=== PATIENT | male | born 2005 | race Two or more races ===

== ENCOUNTER 2025-03-10 08:52 | Emergency (ER) | payer SELFPAY ==
[2025-03-10] MEDS ORDERED: Sodium Chloride 0.9% 10 ML Syringe FLUSH PRN (09:03)
[2025-03-10] MEDS ORDERED: Sodium Chloride 0.9% 2.5 ML Syringe FLUSH PRN (09:03)
[2025-03-10] MEDS: Ondansetron 4 MG/2 ML SDV IVPUSH ONE (09:11)
[2025-03-10] MEDS: Diphtheria,Pertussis(Acell),Tetanus Vaccine 0.5 ML Syringe IM ONE (09:11)
[2025-03-10] MEDS: ceFAZolin 2 GM in Water For Injection, Sterile 20 ML IVPUSH ONE (09:12)
[2025-03-10 09:14] LABS: BASOPHILS ABSOLUTE AUTO 0.07 K/uL (0.00-0.20); BASOPHILS PERCENT AUTO 0.6 % (0.0-1.0); EOSINOPHILS ABSOLUTE AUTO 0.30 K/uL (0.00-0.45); EOSINOPHILS PERCENT AUTO 2.5 % (0.0-6.0); IMMATURE GRAN ABSOLUTE AUTO 0.03 K/uL (0.00-0.05); IMMATURE GRAN PERCENT AUTO 0.2 % (0.0-0.4); LYMPHOCYTES ABSOLUTE AUTO 2.87 K/uL (1.00-4.80); LYMPHOCYTES PERCENT AUTO 23.6 % (24.0-44.0); MEAN PLATELET VOLUME 11.0 fL (9.4-12.4); MONOCYTES ABSOLUTE AUTO 0.70 K/uL (0.00-0.80); MONOCYTES PERCENT AUTO 5.7 % (0.0-8.0); NEUTROPHILS ABSOLUTE AUTO 8.21 K/uL (1.80-7.70); NEUTROPHILS PERCENT AUTO 67.4 % (41.0-71.0); NRBC ABSOLUTE 0.00 K/uL (0.00-0.02); NRBC PERCENT 0.0 /100WBC (0.0-0.2); PLATELET COUNT,PLT 206 K/uL (150-400); RED BLOOD CELL COUNT 4.98 M/uL (4.52-5.90); WHITE BLOOD CELL COUNT,WBC 12.18 K/uL (3.9-11.3)
[2025-03-10 09:26] LABS: INR 1.04 (0.86-1.11); PTT,PARTIAL THROMBOPLSTIN TIME 24.3 SEC (23.9-30.7)
[2025-03-10 09:42] LABS: A/G RATIO 1.3 (0.9-1.6); ALANINE AMINOTRANSFERASE,ALT 51.0 IU/L (14-63); ASPARTATE AMNIOTRANSFERASE,AST 41.0 IU/L (15-37); BILIRUBIN TOTAL 0.7 mg/dL (0.2-1.0); BLOOD UREA NITROGEN,BUN 10.0 mg/dL (7.0-18.0); CARBON DIOXIDE,CO2 24.4 mmol/L (21.0-32.0); CHLORIDE,CL 101.0 mmol/L (98-107); CREATININE 1.1 mg/dL (0.8-1.3); EST CRCL DRUG DOSING (CG) 99.32 mL/min; ESTIMATED GFR 98.0 mL/min (>60); GLUCOSE RANDOM 115.0 mg/dL (74-106); POTASSIUM,K 4.3 mmol/L (3.5-5.1); PROTEIN TOTAL,TP 7.9 g/dL (6.4-8.2); SODIUM,NA 138.0 mmol/L (136-148)
[2025-03-10] MEDS ORDERED: Naloxone 0.4 MG/ML SDV IVPUSH PRN (11:14)
[2025-03-10] MEDS: fentaNYL 50 MCG/ML SDV IVPUSH ONE (12:03)
== END 2025-03-10 12:29 ==
LOC: MW.ED 08:52
DX: S62.621B Displaced fracture of middle phalanx of left index finger, initial encounter for open fracture (principal); E86.0 Dehydration; Z88.8 Allergy status to other drugs, medicaments and biological substances; W23.1XXA Caught, crushed, jammed, or pinched between stationary objects, initial encounter; Z23 Encounter for immunization
CPT/HCPCS: 36415; 73120; 80053; 85025; 85610; 85730; 90471; 90715; 96361; 96374; 96375; 99285; A4216; J0690; J2405; J3010; J7030; 99284; J1171

== ENCOUNTER 2025-03-20 20:20 | Emergency (ER) | payer SELFPAY | END 2025-03-21 00:19 | disposition left against medical advice (07) | LOC: MW.ED 20:20 | DX: Z53.21 Procedure and treatment not carried out due to patient leaving prior to being seen by health care provider (principal) ==

== ENCOUNTER 2025-03-21 12:52 | Emergency (ER) | payer SELFPAY | END 2025-03-21 14:16 | disposition home or self-care (01) | LOC: MW.ED 12:52 | DX: I96 Gangrene, not elsewhere classified (principal); M79.641 Pain in right hand; Z88.8 Allergy status to other drugs, medicaments and biological substances; Z79.899 Other long term (current) drug therapy | CPT/HCPCS: 99283 ==